=== PATIENT | female | born 1945 | race Caucasian/White ===

== ENCOUNTER → 2016-09-06 | Outpatient (CLI) | payer OTHER ==
[~2016-09-06] MED LIST: CALC500C3 PO; MULT-506 PO; OFLO0.3S4 OPL; PRED1SUS3
--- NOTE | 2016-09-06 12:36 | MAMMOGRAPHY REPORT ---
BILATERAL DIGITAL SCREENING MAMMOGRAM TOMOSYNTHESIS WITH CAD: 09/06/2016 CLINICAL HISTORY: Asymptomatic. Personal history of breast cancer. TECHNIQUE: Breast tomosynthesis in addition to standard 2D mammography was performed. Current study was also evaluated with a Computer Aided Detection (CAD) system. COMPARISON: Comparison is made to exams dated: 08/19/2015 mammogram, 07/03/2013 mammogram, 08/17/2014 mammogram, 06/13/2012 mammogram, 05/30/2011 mammogram, and 05/23/2010 mammogram - [facility]. BREAST COMPOSITION: The tissue of both breasts is heterogeneously dense, which may obscure small ma sses. FINDINGS: No suspicious masses, calcifications, or areas of architectural distortion are noted in e ither breast. There has been no significant interval change compared to prior exams. There are stab le postsurgical changes in the left breast from prior lumpectomy, including surgical clips and coars e benign dystrophic calcifications as well as sutural calcifications noted at the lumpectomy bed. IMPRESSION: ACR BI-RADS CATEGORY 2: BENIGN There is no mammographic evidence of malignancy. A 1 year screening mammogram is recommended. The p atient will receive written notification of the results. Approximately 10% of breast cancers are not detected with mammography. A negative mammographic repor t should not delay biopsy if a clinically suggestive mass is present. Roxane Charles M.D. /:09/06/2016 12:28:31 [employer]ed Circuit Boards Router: Vlad MARTINS)(Jaron), [facility] letter sent: Normal 1/2 BI-RADS Code: ACR BI-RADS Category 2: Benign
== END | disposition home or self-care (01) ==
LOC: C.MAMM 11:06
PROVIDERS: ATTEND Obstetrics & Gynecology
DX: Z12.31 Encounter for screening mammogram for malignant neoplasm of breast (principal); Z85.3 Personal history of malignant neoplasm of breast

== ENCOUNTER → 2017-09-24 | Outpatient (CLI) | payer OTHER ==
--- NOTE | 2017-09-25 15:53 | MAMMOGRAPHY REPORT ---
BILATERAL DIGITAL SCREENING MAMMOGRAM TOMOSYNTHESIS WITH CAD: 09/24/2017 CLINICAL HISTORY: Asymptomatic. Personal history of breast cancer. TECHNIQUE: Breast tomosynthesis in addition to standard 2D mammography was performed. Current study was also evaluated with a Computer Aided Detection (CAD) system. COMPARISON: Comparison is made to exams dated: 09/06/2016 mammogram, 08/19/2015 mammogram, 08/17/2014 ma mmogram, 07/03/2013 mammogram, 06/13/2012 mammogram, and 05/30/2011 mammogram - [facility] enter. BREAST COMPOSITION: The tissue of both breasts is heterogeneously dense, which may obscure small mas ses. FINDINGS: A linear scar marker overlies the anterior left breast. There is expected underlying archi tectural distortion and sutural calcification in the anterior left breast, at the site of prior lumpe ctomy. No obvious new mass, architectural distortion or cluster of suspicious microcalcifications is seen. IMPRESSION: ACR BI-RADS CATEGORY 1: NEGATIVE There is no mammographic evidence of malignancy. A 1 year screening mammogram is recommended. The pa tient will receive written notification of the results. Approximately 10% of breast cancers are not detected with mammography. A negative mammographic report should not delay biopsy if a clinically suggestive mass is present. Casandra Weeks M.D. ay/:09/24/2017 16:50:16 Ethnology Teacher: Penny Maldonado M, [facility] letter sent: Normal 1/2 BI-RADS Code: ACR BI-RADS Category 1: Negative
== END | disposition home or self-care (01) ==
LOC: C.MAMM 11:29
PROVIDERS: ATTEND Obstetrics & Gynecology
DX: Z12.31 Encounter for screening mammogram for malignant neoplasm of breast (principal); Z85.3 Personal history of malignant neoplasm of breast

== ENCOUNTER 2025-05-11 08:37 | Observation (INO) ==
--- NOTE | 2025-04-08 10:31 | PAT Medication Instructions ---
Medication Instructions Date of Service April 08, 2025 Home Medications calcium carbonate-vitamin D3 600 mg-125 unit tablet 1 tab PO QAM coenzyme Q10 100 mg capsule (Co Q-10) 100 mg PO QAM multivitamin with minerals-folic acid 120 mcg chewable tablet (Vitafusion Women's Multi) 1 tab PO QAM omega-3 fatty acids 1 cap PO QAM pravastatin 40 mg tablet 40 mg PO QAM sertraline 50 mg tablet 50 mg PO QAM STOP taking 2 weeks before surgery (or as soon as possible if surgery is within 2 weeks) coenzyme Q10 100 mg capsule (Co Q-10) 100 mg PO QAM multivitamin with minerals-folic acid 120 mcg chewable tablet (Vitafusion Women's Multi) 1 tab PO QAM omega-3 fatty acids 1 cap PO QAM DO NOT take the morning of surgery calcium carbonate-vitamin D3 600 mg-125 unit tablet 1 tab PO QAM Take morning of surgery With a small sip of water, OTHERWISE NOTHING TO EAT OR DRINK AFTER MIDNIGHT: pravastatin 40 mg tablet 40 mg PO QAM sertraline 50 mg tablet 50 mg PO QAM Other Notes If you have any questions please call us at [phone] or [phone] or or [phone]
--- NOTE | 2025-04-14 10:34 | Anesthesiology Consultation ---
Date of Service April 14, 2025 Assessment & Plan (1) Encounter for pre-operative examination: - Infectious disease screening: Per assessment on 04/14/25- No known recent infectious disease contacts. Recent URI symptoms (cough, congestion/rhinorrhea) with symptom onset 03/31/25. Symptoms resolved except occasional cough. Symptom onset > 10 days prior to DOS. Patient advised to contact PAT/surgeon if not at baseline prior to surgery. Nothing further needed at this time. - Outpatient joint assessment: Pt currently scheduled for inpatient pathway. If surgeon requests review for outpatient joint pathway, patient is not a recommended candidate for outpatient joint program from anesthesia standpoint based on available information. - Pending: * Patient unable to void at PAT. Per PAT tech, will be taking sample back to [place] lab in near future. Awaiting surgeon-ordered preop UA ([place] lab). * Awaiting surgeon-ordered PCP preop evaluation (Claire ARENAS/AZUL, appt 04/27). Chart Review Chart Review: Patient seen in Pre Admission Testing Teaching & Discussion Pre-Anesthesia Teaching/Discussion Notes: Instructed NPO after midnight before surgery,except medications with 15 cc of water. Medication instructions provided according to the PAT guidelines. History Surgery Operation Date: 05/11/25 10:05 Proposed Procedures p Right Total Shoulder Arthroplasty versus - Cedrick Keaton Conti MD s Right Total Shoulder Arthroplasty, Distal Clavicle Excision - Cedrick Keaton Conti MD Height/Weight Height: 5 ft 3 in Weight: 61.4 kg Allergies Allergy/AdvReac Type Severity Reaction Status Date / Time No Known Allergies Allergy Unknown NONE Verified 04/08/25 09:46 Medications Home Medications Medication Instructions Recorded Confirmed Last Taken calcium carbonate-vitamin D3 600 1 tab PO QAM 10/12/20 04/08/25 10/15/20 mg-125 unit tablet coenzyme Q10 100 mg capsule (Co 100 mg PO QAM 04/08/25 04/08/25 Unknown Q-10) multivitamin with minerals-folic 1 tab PO QAM 04/08/25 04/08/25 Unknown acid 120 mcg chewable tablet (Vitafusion Women's Multi) omega-3 fatty acids 1 cap PO QAM 04/08/25 04/08/25 Unknown pravastatin 40 mg tablet 40 mg PO QAM 04/08/25 04/08/25 Unknown sertraline 50 mg tablet 50 mg PO QAM 04/08/25 04/08/25 Unknown Past Medical History Medical History Depression Hearing deficit b/l hearing aids History of COVID-spring, resolved Hx of breast cancer (01/11/09) "Infiltrating ductal carcinoma of the left breast Status post lumpectomy and sentinel lymph node biopsy Pathologic stage [id number] Status post systemic chemotherapy with Cytoxan and Taxotere completed 2008 Status post completion of radiation therapy 09/16/2009 received 6120 cGy" Meningioma Hx, removed Osteoarthritis Exercise / Class Metabolic Activity II 4-5 Yardwork/Stairs/Walk up hill (one FS: No CP, no SOB) Past Family History Family History Other No family history of adverse response to anesthesia No pertinent family history Past Surgical History Surgical History History of bilateral cataract extraction History of brain surgery (12/2009) benign meningioma removed History of colonoscopy with polypectomy (2020) History of left breast biopsy malignant History of lumbar spinal fusion (~1974) History of wisdom tooth extraction Past Anesthesia History No Hx of Anesthesia Complications and No Family Hx of Anesthesia Complications History of PONV No Hx of PONV and No Hx of Motion Sickness Social History Smoking Status: Never smoker Do You Dip or Chew Tobacco: No Hx Alcohol Use: Yes alcohol intake frequency: holidays/special occasions only Hx Substance Use: No substance use type: does not use Review of Systems Patient denies chest pain, shortness of breath, dyspnea on exertion, fever, chills, wheezing, palpitations. Physical Exam Vital Signs BP 124/75 P 64 TEMP 97.6 SP02 95%RA RESP 16 Physical Full cervical extension range of motion. Full TMJ range of motion. TMD 3 finger breaths Mallampati Score III Dentition: intact, possible crown Lungs: clear throughout to auscultation Cardiac: regular rate and rhythm, no murmurs noted Spine: normal Carotid arteries: negative bruit Extremities: no LE edema Lab Results Anesthesia Preop Results Results Anesthesia Widget: WBC 5.56 K/ul (4.8-10.8) 04/14/25 Hgb 14.2 g/dl (12.0-16.0) 04/14/25 Hct 41.3 % (37.0-47.0) 04/14/25 Plt 381 K/uL (130-400) 04/14/25 Na 141 mmol/L (136-145) 04/14/25 K 4.0 mmol/L (3.5-5.1) 04/14/25 Cl 106 mmol/L (98-107) 04/14/25 CO2 29 mmol/L (21-32) 04/14/25 BUN 19 mg/dl (6-23) 04/14/25 Creat 0.84 mg/dl (0.6-1.2) 04/14/25 Glucose Level 101 mg/dl (70-99(Fasting)) H 04/14/25 PT 10.5 Seconds (9.0-12.0) 04/14/25 PTT 29 Seconds (21-31) 04/14/25 INR 1.0 (0.9-1.1) 04/14/25 Blood Type A Positive 04/14/25 Antibody Screen NEGATIVE 04/14/25 Testing Electrocardiogram Date: 04/14/25 SB at 59bpm. unconfirmed report. Chest X-Ray Date: 04/07/25 Findings: + NAD Stress Test Date: 12/19/22 Stress EKG/echo negative for ischemia. 90% MPHR. 10 METS. Slightly blunted HR response to exercise. Baseline echo: EF 60-65%. No regional wall motion abnormality. No LVH.
[~2025-05-11 08:37] MED LIST changes: +ATROPINE SULFATE 0.1 MG/ML 10ML SYR IV PRN; +BUPIVACAINE 0.5 % 5 MG/1 ML PF 10ML VIAL ONE; -CALC500C3 PO; +HYDROmorphone INJ 1 MG/ML SYRINGE IV PRN; +LIDOCAINE 2% 2 ML VIAL/AMP(20MG/ML) INFIL ONE; +MIDAZOLAM HCL 1 MG/ML 2ML VIAL ONE; -MULT-506 PO; -OFLO0.3S4 OPL; +ONDANSETRON INJ 2 MG/ML 2 ML VIAL IV PRN; +PHENYLEPHRINE HCL 10 MG/ML VIAL ONE; -PRED1SUS3; +PROPOFOL IV EMULSION 10 MG/ML 20 ML VIAL IV ONE; +ROCURONIUM BROMIDE 10 MG/ML 5 ML VIAL IV ONE
[2025-05-11] MEDS: CeleBREX 200 MG CAP PO SCH ×2 (09:21→19:58)
[2025-05-11] MEDS: ACETAMINOPHEN 500 MG TAB PO SCH ×2 (09:21→22:02)
[2025-05-11] MEDS: LR 15ML/HR IV SCH (09:21)
[2025-05-11] MEDS: LR 60ML/HR IV SCH (09:22)
--- NOTE | 2025-05-11 10:04 | History & Physical Bridge Note ---
Date of Service May 11, 2025 History & Physical Bridge Note I have examined the patient, reviewed the History & Physical and in the interval since the performance of the History & Physical I have noted the following changes of clinical significance: no changes noted Plan on Right Total shoulder replacement vs reverse with distal clavicle excision.
[2025-05-11] MEDS: TRANEXAMIC ACID 1,000 MG **IV Pre-op IV SCH (10:07)
[2025-05-11] MEDS ORDERED: GLYCOPYRROLATE 0.2 MG/ML VIAL ONE ×2 (11:14→13:41)
[2025-05-11] MEDS: ORTHO JOINT ANESTHETIC ONE (11:21)
[2025-05-11] MEDS ORDERED: ONDANSETRON INJ 2 MG/ML 2 ML VIAL ONE (11:30)
[2025-05-11] MEDS ORDERED: DEXAMETHASONE SOD INJ 4 MG/ML VIAL ONE (11:30)
[2025-05-11] MEDS ORDERED: NEOSTIGMINE METHYLSULFATE 1 MG/ML 10ML VIAL ONE (13:41)
[2025-05-11] MEDS: ROPIV 0.5% 246mg, Ketorolac 30mg, EPINEPHrine 0.5mg in NSS INFIL SCH (14:10)
--- NOTE | 2025-05-11 14:44 | Post Operative Brief Note ---
Immediate Post Op Note Date of Surgery May 11, 2025 Pre & Post Diagnosis Operation Date: 05/11/25 10:20 Pre-Op Diagnosis: Osteoarthritis Shoulder & AC joint, Right Post-Op Diagnosis: Osteoarthritis Shoulder& AC joint, Right I identified the patient and participated in the time-out.: Yes Procedure Operation Date: 05/11/25 10:20 Actual Procedures p Right Anatomic Total Shoulder Arthroplasty, open Distal Clavicle Excision(Right) - Cedrick Conti MD Surgeon Cedrick Conti MD [facility] Corpsman Keaton Griffin PA-C (No fellow avail) Estimated Blood Loss 75 Findings Consistent with Post-Op Diagnosis Fluids 1300 cc Specimens Right Humeral Head, distal clavicle, glenoid cyst Anesthesia Type General Regional Complications none
--- NOTE | 2025-05-11 14:45 | Operative Report ---
Post Operative Report Pre & Post Diagnosis Operation Date: 05/11/25 10:20 Pre-Op Diagnosis: Osteoarthritis Shoulder, AC joint, Right Post-Op Diagnosis: Osteoarthritis Shoulder, AC joint, Right I identified the patient and participated in the time-out.: Yes Procedure Operation Date: 05/11/25 10:20 Actual Procedures p Right Anatomic Total Shoulder Arthroplasty, Open Distal Clavicle Excision(Right) - Cedrick Conti MD Surgeon Cedrick Conti MD Engraver Steel Plate Keaton Griffin PA-C (No fellow avail) Estimated Blood Loss 75 Findings See Below Right shoulder degenerative changes, cyst in the glenoid. LHB tendinosis. AC joint OA. Fluids 1300 cc Specimens Right Humeral Head, distal clavicle, glenoid cyst Anesthesia Type General Regional Complications none Indications Patient is a 80-year-old female who right shoulder OA, AC joint OA and has pain and decreased function. I recommended the patient undergo a right total shoulder arthroplasty and distal clavicle excision. The patient understands the risks of the operation including bleeding, infection, re-operation, damage to nerves and arteries, continued shoulder pain, shoulder stiffness, infection, and/or loosening of the components requiring revision surgery. The patient also understands the risks of heart attack, stroke, pulmonary embolus, and . The patient wished to proceed and the consent form was signed. Description of Procedure IMPLANTS: 1) Univers VaultLock Glenoid, Small (Arthrex) 2) Eclipse Trunion 39, Shoulder Implant 3) Eclipse Cage Screw, Large 4) Eclipse Humeral Head 41/18, Shoulder implant Keaton Griffin PA-C is assisting with positioning, retracting, and closure due to fellow not available. PROCEDURE: The patient was taken to the Operating Room and placed in the beach-chair position after administration of an interscalene block and general anesthesia. 2 g of intravenous Ancef were administered. The right shoulder was then prepped and draped in the standard sterile fashion. Sequential compression devices were placed on the legs. The multidisciplinary time-out identified the patient and the right shoulder as the correct shoulder. The bone landmarks were marked and the planned incision deltopectoral interval extended superiorly to the posterior aspect of the clavicle. First, the deltopectoral incision was anesthetized with 15 cc of the joint cocktail. Sharp dissection was carried down to the deltopectoral interval. The cephalic vein was identified and protected medially. Blunt dissection was performed to separate the deltoid from the rotator cuff. The clavipectoral fascia was then incised and a self-retaining shoulder retractor was placed beneath the conjoined tendon and deltoid muscle, exposing the subscapularis tendon. The biceps tendon was identified in its groove and had degeneration and fluid. The biceps tendon was unroofed from its groove, and the rotator interval was split to the base of the coracoid. The Pectoralis Major tendon was released approximately 1-2 cm. The biceps and Pec were tagged with a 0 Vicryl. The biceps was released from the glenoid rim and near the pec. The 3 sisters were cauterized and the Subscapularis tendon was peeled off the humerus, exposing the humeral head as the arm was externally rotated. Traction sutures were placed in the Subscapularis with #2 FiberWire. Next, the humeral head was dislocated with the arm adducted, extended using a Derra protecting the Supraspinatus and externally rotated and using Brown retractor to protect the deltoid and displace the humeral head anterior. A capsulotomy was carried down all the way around to the posterior aspect of the humeral head, taking care to stay on bone. We exposed the humeral osteophytes anterior, inferiorly. These osteophytes were removed with a rongeur to identify the medial calcar on the humeral neck. Next, using the Fixed angle cutting guide was placed and held with a guide pin to allow rotation so that the humeral osteotomy was performed in 30 degrees of retroversion using the guide that was pinned in place. The 39 Trunnion fit best and the pins were impacted to hold the guide in place. The hand meat salter was used in the standard fashion to prepare for the Eclipse screw. A centralizer was placed and using the guide pin the length of the screw was measured. A protective cap was placed over top of the osteotomy site. The glenoid was exposed with a Batman retractor anteriorly, Derra posterior superiorly, and Victor Manuel retractor posteriorly displacing the humeral head posterior and inferior. Using the VIP aiming guide based on preoperative planning a guide pin was placed centrally. Then the glenoid was reamed to bleeding surface. The central forestry pilot hole was created with the drill. The guide for the Univers VaultLock was placed in the standard fashion centered using the central forestry pilot hole. Once it was seated in the proper position, the 6mm drill was used to create the superior hole and the drill was held in place to further stabilize the guide. The 3 inferior holes were placed using the 4.5mm drill. The guide was removed, and the glenoid broach was used to complete the glenoid preparation. The small trial fit well. The cyst in the glenoid was removed through the inferior keel hole. The inferior hole was bone grafted with morselized bone from the humeral head. Bone from the humeral head reaming was placed around the central peg in the standard fashion. Palacos cement was placed in the superior and inferior holes and a small amount was placed superiorly along the superior peg and a small amount inferior to the keel. The glenoid was placed in the standard fashion. After the cement had cured the glenoid was well secured. Our attention returned to the humeral head and the centralizer was placed followed by the Trunnion which was impacted into place in the standard fashion. The central screw was placed securing the Trunnion in place. Trial heads were placed and the 41/18 had excellent stability and 1+ translation anteriorly and posteriorly with good bounce back to the glenoid. Three bone bridge were placed in the lesser tuberosity for the Subscapularis repair with #2 Fiberwire. The definitive humeral head was then impacted into place on the trunnion. Again, there was excellent stability and ROM forward flexion 160 degrees and Abduction 160 degrees. The FiberWire from each bone bridge was passed through the Subscapularis tendon. With traction on the Subscapularis, the rotator interval was closed with 0 Vicryl. The FiberWire sutures from each bone bridge that were passed through the Subscapularis tendon tied sectionally, then 1 strand tied to the adjacent bone bridge and traction suture. The most inferior FiberWire suture was run in an epitendinous fashion superiorly. The humeral head was no longer visible. The biceps was tenodesed to the pectoralis major tendon with #1 Vicryl. Next our attention was drawn to the AC joint and a longitudinal incision was made in-line with the fibers of the superior AC joint ligament. The posterior and anterior aspect of the clavicle was exposed and using a sagittal saw the distal 8 mm was removed. A rasp was used to smooth out the edges. The wound was copiously irrigated. Bone wax was placed along the exposed bone. There was adequate space. The pulsatile lavage was used to copiously irrigate the wound. The deltopectoral interval was re-approximated with #1-Vicryl, the deep soft tissue was closed with 2-0 Vicryl, subcutaneous tissue was closed with 3-0 Vicryl, and the skin was closed with ZipeLine and shield. The wounds were dressed with 4x4 and Tegaderm. The sponge and needle count were correct. The patient was then transferred to the PACU in stable condition after application of an abduction sling. POST-OP INSTRUCTIONS: The patient will be admitted for observation. Remain in the sling with abduction pillow for 4 weeks and another 2 weeks without the pillow. Will work with PT/OT. Pain control with Tylenol, NSAIDs, and breakthrough narcotics. I attest to the content of the Intraoperative Record and any orders documented therein. Any exceptions are noted below.
--- NOTE | 2025-05-11 15:18 | Operative Report ---
Post Operative Report Pre & Post Diagnosis Operation Date: 05/11/25 10:20 Pre-Op Diagnosis: Right Shoulder and AC Joint Osteoarthritis Post-Op Diagnosis: Right Shoulder and AC Joint Osteoarthritis I identified the patient and participated in the time-out.: Yes Procedure Operation Date: 05/11/25 10:20 Actual Procedures p Right Anatomic Total Shoulder Arthroplasty, Distal Clavicle Excision(Right) - Cedrick Conti MD Surgeon Cedrick Conti MD Spring Maker Keaton Griffin PA-C (No fellow avail) Estimated Blood Loss 75 Findings Consistent with Post-Op Diagnosis Specimens Bone and soft tissue Description of Procedure I was present for the entire case. I assisted with patient positioning, prepping, draping, retraction, suctioning, wound closure, dressing and brace application. Please refer to Dr. Conti's procedure note for full details. I attest to the content of the Intraoperative Record and any orders documented therein. Any exceptions are noted below.
--- NOTE | 2025-05-11 15:46 | XRay Report ---
XR shoulder RT min 2V routine CLINICAL HISTORY: Post shoulder surgery COMPARISON: 10/14/2024 FINDINGS: Right shoulder prosthesis shows no hardware complication. There is expected soft tissue ga s. IMPRESSION: Unremarkable postoperative exam. ACT 112: Negative or not required by law. Electronically signed by: Fabio Cook M.D. 05/11/2025 3:44 PM
--- NOTE | 2025-05-11 16:24 | Anesthesiology Progress Note ---
Date of Service May 11, 2025 Anesthesia Post Procedure Vital Signs Vital Signs: Temp Pulse Resp BP BP Pulse Ox O2 Del Method 05/11/25 16:20 62 15 103/61 94 Room Air 05/11/25 16:10 36.3 C L 65 15 112/66 92 Room Air 05/11/25 16:00 66 16 128/70 93 Room Air 05/11/25 15:50 66 17 109/63 94 Room Air 05/11/25 15:40 66 17 123/61 92 Room Air 05/11/25 15:30 69 13 133/55 L 94 Room Air 05/11/25 15:20 70 16 90/64 L 92 Room Air 05/11/25 15:10 69 13 114/67 92 Room Air 05/11/25 15:03 36 C L 59 L 18 112/71 99 Oxymask 05/11/25 09:01 36.5 C 63 22 142/80 H 95 Room Air O2 Flow Rate 05/11/25 16:20 05/11/25 16:10 05/11/25 16:00 05/11/25 15:50 05/11/25 15:40 05/11/25 15:30 05/11/25 15:20 05/11/25 15:10 05/11/25 15:03 5 05/11/25 09:01 Transfer of Care Handoff Completed per policy Notes Mental Status: alert / awake / arousable and participated in evaluation Patient Amnestic to Procedure: Yes Nausea / Vomiting: adequately controlled Pain: adequately controlled Airway Patency, RR, SpO2: stable & adequate BP & HR: stable & adequate Hydration State: stable & adequate Anesthetic Complications: no major complications apparent and Pt Satisfied with anesthetic care
[2025-05-11] MEDS ORDERED: HYDROmorphone INJ 0.5 MG/0.5 ML SYR IV PRN (16:49)
[2025-05-11] MEDS ORDERED: METOCLOPRAMIDE HCL INJ 5 MG/ML 2 ML VIAL IV PRN (16:49)
[2025-05-11] MEDS ORDERED: NALOXONE HCL 0.4 MG/1 ML VIAL/CARP IV PRN (16:49)
[2025-05-11] MEDS ORDERED: ONDANSETRON INJ 2 MG/ML 2 ML VIAL IV PRN (16:49)
[2025-05-11] MEDS ORDERED: MAGNESIUM HYDROXIDE SUSP 30 ML UDC PO PRN (16:49)
[2025-05-11] MEDS ORDERED: diphenhydrAMINE Capsule 25 MG CAP PO PRN (16:49)
[2025-05-11] MEDS: SODIUM CHLORIDE 0.9% 1,000 ML IV SCH (17:27)
[2025-05-11] MEDS: Scopolamine CHECK PATCH PLACEMENT SCH (17:28)
[2025-05-11] MEDS: ASCORBIC ACID 500 MG TAB PO SCH (18:06)
[2025-05-11] MEDS: FERROUS GLUCONATE 324 MG TAB PO SCH (18:06)
[2025-05-11] MEDS: SENNA 8.6 MG TAB PO SCH (20:03)
[2025-05-11] MEDS: DOCUSATE SODIUM 100 MG CAP PO SCH (20:03)
--- NOTE | 2025-05-11 21:32 | Orthopedic Progress Note ---
Date of Service May 11, 2025 Assessment & Plan (1) Osteoarthritis, shoulder: Plan: POD #0 s/p R TSA, doing as well as expected. Resume diet. Remain in abduction sling 4 weeks and then without pillow for 2 more weeks. OOB to chair. Continue pain control. Check labs tomorrow. DVT prophylaxis: TEDs 3 weeks, foot pumps while in hospital, ASA 81 mg BID for 2 weeks. PT/OT. D/C planning. Dressing to be changed POD 2-3 to Silverlon type dressing. Admission and Anticipated Discharge Date Admission Date: May 11, 2025 Subjective Doing well Physical Exam Physical Exam: RUE: Able to flex and extend digits, sensation to light touch was diminished. BCR < 2 sec. Abd sling in place. Results & Data Vital Signs (Past 12 Hours) Vital Signs Temp Pulse Pulse Resp BP Pulse Ox O2 Del Method 05/11/25 19:30 36.4 C L 72 18 100/63 97 Room Air 05/11/25 18:33 36.3 C L 74 18 107/70 94 Room Air 05/11/25 17:29 36.3 C L 63 18 110/58 L 94 Room Air 05/11/25 17:07 63 16 97/59 L 93 Room Air 05/11/25 16:30 36.3 C L 64 18 101/67 94 Room Air 05/11/25 16:20 62 15 103/61 94 Room Air 05/11/25 16:10 36.3 C L 65 15 112/66 92 Room Air 05/11/25 16:00 66 16 128/70 93 Room Air 05/11/25 15:50 66 17 109/63 94 Room Air 05/11/25 15:40 66 17 123/61 92 Room Air 05/11/25 15:30 69 13 133/55 L 94 Room Air 05/11/25 15:20 70 16 90/64 L 92 Room Air 05/11/25 15:10 69 13 114/67 92 Room Air 05/11/25 15:03 36 C L 59 L 18 112/71 99 Oxymask O2 Flow Rate 05/11/25 19:30 05/11/25 18:33 05/11/25 17:29 05/11/25 17:07 05/11/25 16:30 05/11/25 16:20 05/11/25 16:10 05/11/25 16:00 05/11/25 15:50 05/11/25 15:40 05/11/25 15:30 05/11/25 15:20 05/11/25 15:10 05/11/25 15:03 5 Diagnostic Findings XR shoulder RT min 2V routine CLINICAL HISTORY: Post shoulder surgery COMPARISON: 10/14/2024 FINDINGS: Right shoulder prosthesis shows no hardware complication. There is expected soft tissue gas. IMPRESSION: Unremarkable postoperative exam.
[2025-05-11 23:14] VITALS: O2SAT 93
[2025-05-12 02:35] VITALS: TEMP 98.2
[2025-05-12 08:38] VITALS: BP 95/60; PULSE 83; RESP 18
[2025-05-12 08:44] LABS: Hematocrit (blood only) 33.4 % (37.0-47.0); Hemoglobin 11.2 g/dl (12.0-16.0); Immature Granulocytes # (auto) 0.07 K/uL (0.01-0.20); Immature Granulocytes % (auto) 0.6 %; Mean Corpuscular Hemoglobin 30.8 pg (25.0-34.0); Mean Corpuscular Volume 91.8 fL (80.0-100.0); Platelet Count 279 K/uL (130-400); RDW Standard Deviation 45.4 fL (36.4-46.3); Red Blood Count 3.64 M/uL (4.20-5.40); White Blood Count 12.28 K/ul (4.8-10.8)
[2025-05-12 09:05] LABS: Anion Gap 6.0 (3-11); Blood Urea Nitrogen 20.0 mg/dl (6-23); Calcium 8.3 mg/dl (8.6-10.3); Carbon Dioxide 27.0 mmol/L (21-32); Chloride 106.0 mmol/L (98-107); Creatinine Clr Calc Pharmacy 39.1 ml/min; Glucose 109.0 mg/dl (70-99(Fasting)); Potassium 4.4 mmol/L (3.5-5.1); Sodium 139.0 mmol/L (136-145)
[2025-05-12] MEDS: ASPIRIN 81 MG ECTAB PO SCH (09:09)
[2025-05-12] MEDS: SERTRALINE HCL 50 MG TABLET PO SCH (09:09)
[2025-05-12] MEDS: PRAVASTATIN SOD 40 MG TAB PO SCH (09:09)
[2025-05-12] MEDS: MULTIVITAMIN TAB PO SCH (09:09)
--- NOTE | 2025-05-12 09:45 | Orthopedic Progress Note ---
Date of Service May 12, 2025 Assessment & Plan (1) Osteoarthritis, shoulder: Plan: POD #1 s/p R TSA, doing as well as expected. Resume diet.Tolerating well. Remain in abduction sling 4 weeks and then without pillow for 2 more weeks. OOB to chair. Continue pain control. Pain well-controlled today. Nerve block still functioning. H&H stable. Asymptomatic. Started on iron supplements And vitamin C today. DVT prophylaxis: TEDs 3 weeks, foot pumps while in hospital, ASA 81 mg BID for 2 weeks. PT/OT - They are to see this morning. If doing well then we will plan to discharge home. Postoperative protocol provided to patient and placed on her chart. D/C planning As per case management. Home health arrangements have been made preoperatively. Dressing to be changed POD 2-3 to Silverlon type dressing. Appointment as scheduled on Saturday, May 14, 2025 Discharge instructions were completed. All questions were answered. Patient plans to be discharged home later this morning as long as she is stable for discharge. Admission and Anticipated Discharge Date Admission Date: May 11, 2025 Subjective Patient resting comfortably in bed. She has been out of bed to go to the bathroom. Physical therapy and Occupational Therapy have not seen her yet this morning. She denies any postoperative nausea, vomiting, lightheadedness or dizziness. Nursing states that her blood pressure is "running low". Supriya tells me that she typically does "run low". She does feel that she is able to go home. Her is at home to help her. She states that home health is planning on coming out this afternoon. She denies any pain. She states that the "nerve block is still working". She has no sensation of her arm or thumb but is able to wiggle her fingers. Physical Exam Musculoskeletal: Exam of her right upper extremity: Postoperative dressings are clean, dry and intact. Left in place today. Sling right upper extremity in place. She has the ability to fully flex and extend all of her fingers. She has sensation in the tips of her fingers except for the thumb. She is able to make a fist. She can do wrist flexion and extension and hold against resistance. No weakness is appreciated. Distal pulses are 2+. No range of motion of the elbow or shoulder were attempted today. Exam of bilateral lower extremities: No distal edema in either lower extremity. Calves are supple and nontender. Results & Data Vital Signs (Past 12 Hours) Vital Signs Temp Pulse Resp BP Pulse Ox O2 Del Method O2 Flow Rate 05/12/25 08:37 36.8 C 83 18 95/60 L 93 Room Air 05/12/25 02:34 36.8 C 81 16 87/53 L 93 Nasal Cannula 2 05/11/25 23:13 36.6 C 79 18 98/63 L 93 Nasal Cannula 2 Laboratory Results 05/12/25 Range/Units 08:09 WBC 12.28 H (4.8-10.8) K/ul RBC 3.64 L (4.20-5.40) M/uL Hgb 11.2 L (12.0-16.0) g/dl Hct 33.4 L (37.0-47.0) % MCV 91.8 (80.0-100.0) fL MCH 30.8 (25.0-34.0) pg MCHC 33.5 (32.0-36.0) g/dL RDW Std Deviation 45.4 (36.4-46.3) fL RDW Coeff of Evan 13.4 (11.5-14.5) % Plt Count 279 (130-400) K/uL MPV 9.3 L (9.4-12.4) fL Immature Gran % (Auto) 0.6 % Neut % (Auto) 76.1 % Lymph % (Auto) 9.1 % [place] % (Auto) 14.1 % Eos % (Auto) 0.0 % Baso % (Auto) 0.1 % Neut # (Auto) 9.35 H (1.40-6.50) K/uL Lymph # (Auto) 1.12 L (1.20-3.40) K/uL [place] # (Auto) 1.73 H (0.11-0.59) K/uL Eos # (Auto) 0.00 (0.00-0.50) K/uL Baso # (Auto) 0.01 (0.00-0.20) K/uL Immature Gran # (Auto) 0.07 (0.01-0.20) K/uL Sodium 139 (136-145) mmol/L Potassium 4.4 (3.5-5.1) mmol/L Chloride 106 (98-107) mmol/L Carbon Dioxide 27 (21-32) mmol/L Anion Gap 6 (3-11) BUN 20 (6-23) mg/dl Creatinine 0.98 (0.6-1.2) mg/dl Est Cr Clr Drug Dosing 39.1 ml/min eGFR 59.08 BUN/Creatinine Ratio 20.4 H (10-20) Glucose 109 H (70-99(Fasting)) mg/dl Calcium 8.3 L (8.6-10.3) mg/dl Diagnostic Findings Shoulder X-Ray 05/11/25 15:16 XR shoulder RT min 2V routine CLINICAL HISTORY: Post shoulder surgery COMPARISON: 10/14/2024 FINDINGS: Right shoulder prosthesis shows no hardware complication. There is expected soft tissue gas. IMPRESSION: Unremarkable postoperative exam. ACT 112: Negative or not required by law. Electronically signed by: Fabio Cook M.D. 05/11/2025 3:44 PM
--- NOTE | 2025-05-12 09:48 | Discharge Summary ---
Date of Service May 12, 2025 Discharge Data Procedures Performed Operation Date: 05/11/25 10:20 Actual Procedures p Right Anatomic Total Shoulder Arthroplasty, Distal Clavicle Excision(Right) - Cedrick Conti MD Hospital Course (1) Osteoarthritis, shoulder: Patient was kept in observation at [facility] after undergoing an elective right total shoulder arthroplasty with Dr. Conti on May 11, 2025. Surgery was performed with general anesthesia and peripheral nerve block. She was given 2 g of IV Ancef for surgical prophylaxis which was continued for 24 hours after her procedure. She was given 1 g of IV TXA preoperatively and 1 g IV TXA intraoperatively for bleeding prophylaxis. She tolerated the procedure well without any intraoperative or postoperative complications. X-ray images in the PACU show a stable prosthesis with no evidence of hardware failure or fracture. Postoperatively, she was allowed out of bed, weight-bear as tolerated. Her arm was placed in a sling and she was instructed to keep this in place at all times. Pain medication was provided and she was given Tylenol, IV Dilaudid, oxycodone and Celebrex. She tolerated regular diet during her inpatient stay without any postoperative nausea or vomiting. She did not develop any postoperative lightheadedness or dizziness due to her low blood pressure. Vital signs remained stable. Postoperative labs were within normal limits and as expected postoperatively. She was provided with her home medications. She was seen evaluated by physical therapy and Occupational Therapy on postoperative day 1 and was deemed safe for discharge to her home. Discharge instructions were provided and all questions were answered. She will follow-up as scheduled on May 14 for dressing change. Her postoperative dressing was left in place while in house. She was given aspirin 81 mg p.o. twice daily for 6 weeks after surgery for DVT prophylaxis along with knee-high JEANNIE stockings and AV impulse boots. Case management was involved for discharge planning. She was discharged to her home in stable condition May 12, 2025.
[2025-05-14] MEDS ORDERED: Scopolamine REMOVE TRANSDERM PATCH ONE (08:00)
== END 2025-05-12 11:26 | disposition home health service (06) ==
LOC: ASU 08:37 → 3N 08:37